=== PATIENT | male | born 1985 | race Caucasian/White ===

== ENCOUNTER 2017-07-02 14:57 | Emergency (ER) | payer SELFPAY ==
[~2017-07-02] VITALS: Ht 177.8 cm; Wt 77.1 kg
[~2017-07-02 14:57] MED LIST: AMOX500 PO; Amoxicillin500 MG PO; Bactrim Ds Tab1 EACH PO; CEPH500 PO; CODACE30 PO; CYCL10 PO; Cleocin HCl150 MG PO; DOXY100T53 PO; Flonase 0.05% N16 GM; HYDACE5 PO; HYDACE7.5 PO; IBUP800 PO; Keflex500 MG PO; LORA1 PO; NAPR500 PO; Naprosyn500 MG PO; Norco 10-325 T1 EACH PO; Norco 5-325 Ta1 EACH PO; PARO20 PO; PENVK500 PO; PROM25 PO; Peridex480 ML SS; Pseudoephedrine30 MG PO; Ultram50 MG PO; Veetids 500500 MG PO
[2017-07-02] MEDS ORDERED: Norco 5-325 Ta1 EACH PO (16:19)
[2017-07-02] MEDS ORDERED: Amoxicillin875 MG PO (16:19)
== END 2017-07-02 16:24 | disposition home or self-care (01) ==
LOC: ER 14:57
DX: K04.7 Periapical abscess without sinus (principal); F17.210 Nicotine dependence, cigarettes, uncomplicated
CPT/HCPCS: 41800; 99283

== ENCOUNTER 2017-07-03 12:02 | Emergency (ER) | payer SELFPAY ==
[~2017-07-03] VITALS: Ht 177.8 cm; Wt 74.8 kg
[~2017-07-03 12:02] MED LIST changes: +Amoxicillin875 MG PO
== END 2017-07-03 13:44 | disposition home or self-care (01) ==
LOC: ER 12:02
DX: K04.7 Periapical abscess without sinus (principal); Z79.2 Long term (current) use of antibiotics; F17.210 Nicotine dependence, cigarettes, uncomplicated
CPT/HCPCS: 36415; 96365; 99283

== ENCOUNTER 2018-01-06 11:50 | Emergency (ER) | payer OTHER, SELFPAY ==
[~2018-01-06] VITALS: Ht 170.2 cm; Wt 77.1 kg
== END 2018-01-06 13:18 | disposition home or self-care (01) ==
LOC: ER 11:50
DX: S20.211A Contusion of right front wall of thorax, initial encounter (principal); V00.131A Fall from skateboard, initial encounter; F17.210 Nicotine dependence, cigarettes, uncomplicated
CPT/HCPCS: 71100; 99283-25

== ENCOUNTER 2019-09-02 16:23 | Emergency (ER) | payer OTHER ==
[~2019-09-02] VITALS: Ht 177.8 cm; Wt 72.6 kg
== END 2019-09-02 16:45 | disposition left against medical advice (07) ==
LOC: ER 16:23
DX: Z00.00 Encounter for general adult medical examination without abnormal findings (principal); Z53.21 Procedure and treatment not carried out due to patient leaving prior to being seen by health care provider; F17.210 Nicotine dependence, cigarettes, uncomplicated
CPT/HCPCS: 99282

== ENCOUNTER 2020-01-17 20:40 | Emergency (ER) | payer OTHER | END 2020-01-17 21:42 | disposition left against medical advice (07) | LOC: ER 20:40 | DX: Z53.21 Procedure and treatment not carried out due to patient leaving prior to being seen by health care provider (principal) ==

== ENCOUNTER 2021-01-11 14:30 | Emergency (ER) | payer OTHER ==
[~2021-01-11] VITALS: Ht 180.3 cm; Wt 72.6 kg
[2021-01-11] MEDS ORDERED: IBUP800 PO (15:49)
[2021-01-11] MEDS ORDERED: HYDR1TAB94 PO (15:49)
== END 2021-01-11 15:57 | disposition home or self-care (01) ==
LOC: ER 14:30
DX: S52.502A Unspecified fracture of the lower end of left radius, initial encounter for closed fracture (principal); S52.612A Displaced fracture of left ulna styloid process, initial encounter for closed fracture; S46.912A Strain of unspecified muscle, fascia and tendon at shoulder and upper arm level, left arm, initial encounter; S80.212A Abrasion, left knee, initial encounter; F17.210 Nicotine dependence, cigarettes, uncomplicated; Z23 Encounter for immunization; V00.131A Fall from skateboard, initial encounter; Y93.51 Activity, roller skating (inline) and skateboarding
CPT/HCPCS: 25605; 73100; 73110; 90471; 90714; 96372-59; 99283-25; A9270; J1170; J1885

== ENCOUNTER 2021-01-12 16:04 | Emergency (ER) | payer OTHER ==
[~2021-01-12] VITALS: Ht 180.3 cm; Wt 77.1 kg
[~2021-01-12 16:04] MED LIST changes: +HYDR1TAB94 PO
== END 2021-01-12 16:31 | disposition home or self-care (01) ==
LOC: ER 16:04
DX: M25.532 Pain in left wrist (principal); S62.102D Fracture of unspecified carpal bone, left wrist, subsequent encounter for fracture with routine healing; F17.210 Nicotine dependence, cigarettes, uncomplicated; X58.XXXD Exposure to other specified factors, subsequent encounter
CPT/HCPCS: 99282

== ENCOUNTER 2021-02-19 03:43 | Emergency (ER) | payer OTHER ==
[~2021-02-19] VITALS: Ht 170.2 cm; Wt 68.0 kg
== END 2021-02-19 04:59 | disposition home or self-care (01) ==
LOC: ER 03:43
DX: S52.572A Other intraarticular fracture of lower end of left radius, initial encounter for closed fracture (principal); S52.612A Displaced fracture of left ulna styloid process, initial encounter for closed fracture; F17.210 Nicotine dependence, cigarettes, uncomplicated; V00.131A Fall from skateboard, initial encounter
CPT/HCPCS: 29125; 73110; 99283-25

== ENCOUNTER 2021-04-04 23:43 | Emergency (ER) | payer OTHER ==
[~2021-04-04] VITALS: Ht 160 cm; Wt 63.5 kg
== END 2021-04-05 01:16 | disposition left against medical advice (07) ==
LOC: ER 23:43
DX: Z53.21 Procedure and treatment not carried out due to patient leaving prior to being seen by health care provider (principal)

== ENCOUNTER 2021-04-27 11:48 | Emergency (ER) | payer OTHER ==
[~2021-04-27] VITALS: Ht 170.2 cm; Wt 68.0 kg
[2021-04-27] MEDS ORDERED: Amoxicillin500 MG PO (12:49)
[2021-04-27] MEDS ORDERED: IBU800 MG PO (12:49)
== END 2021-04-27 13:17 | disposition home or self-care (01) ==
LOC: ER 11:48
DX: K04.7 Periapical abscess without sinus (principal); F17.210 Nicotine dependence, cigarettes, uncomplicated
CPT/HCPCS: 99282

== ENCOUNTER 2021-06-08 11:14 | Emergency (ER) | payer OTHER ==
[~2021-06-08] VITALS: Ht 160 cm; Wt 72.6 kg
[~2021-06-08 11:14] MED LIST changes: +IBU800 MG PO
[2021-06-08] MEDS ORDERED: IBUP800 PO (12:34)
== END 2021-06-08 12:39 | disposition home or self-care (01) ==
LOC: ER 11:14
DX: M54.42 Lumbago with sciatica, left side (principal); F17.210 Nicotine dependence, cigarettes, uncomplicated; Z88.0 Allergy status to penicillin
CPT/HCPCS: 72100; 99283-25

== ENCOUNTER 2021-07-30 14:38 | Emergency (ER) | payer OTHER ==
[~2021-07-30] VITALS: Ht 170.2 cm; Wt 72.6 kg
[2021-07-30 17:15] LABS: Calcium, Ionized (POC) 1.22 mmol/L (1.10-1.46); Chloride (POC) 105 mmol/L (98-108); Creatinine (POC) 0.6 mg/dL (0.8-1.3); Glucose (ISTAT POC) 123 mg/dL (70-99); Hemoglobin (POC) 15.3 g/dL (13.5-17.5); Potassium (POC) 3.8 mmol/L (3.5-5.5); Sodium (POC) 140 mmol/L (135-148); Total CO2 (POC) 22 mmol/L (21-32)
[2021-07-30 18:34] LABS: Source, Urine Clean Catch
[2021-07-30 18:47] LABS: Appearance, Urine Clear (Clear); Bilirubin, Urine Neg (Neg); Blood, Urine Neg (Neg); Color, Urine Yellow (P-Yellow); Glucose Qualitative, Urine Neg (Neg); Ketones, Urine Neg (Neg); Leukocyte Esterase, Urine 1+ (Neg); Nitrite, Urine Neg (Neg); Protein, Urine 2+ (Neg); Urobilinogen, Urine NORM (Normal)
[2021-07-30 19:07] LABS: Red Blood Cells, Urine 0-2 /hpf (0-2)
[2021-07-30 19:08] LABS: Bacteria Few /hpf; Mucus Light (0-Heavy); Squamous Epithelial Cells Rare /hpf (Few)
== END 2021-07-30 21:08 | disposition home or self-care (01) ==
LOC: ER 14:38
PROVIDERS: Physician Assistant
DX: R10.9 Unspecified abdominal pain (principal); F19.10 Other psychoactive substance abuse, uncomplicated; R11.2 Nausea with vomiting, unspecified; R19.7 Diarrhea, unspecified; F17.200 Nicotine dependence, unspecified, uncomplicated; Z88.0 Allergy status to penicillin
CPT/HCPCS: 80047; 81001; 85014; 87086; 99284

== ENCOUNTER 2021-12-16 17:04 | Inpatient (IN) | payer OTHER ==
[~2021-12-16] VITALS: Ht 170.2 cm; Wt 71.0 kg
[2021-12-16 17:44] LABS: BASOPHILS ABSOLUTE AUTO 0.03 K/mm3 (0.00-0.23); BASOPHILS PERCENT AUTO 0 % (0-2); EOSINOPHILS ABSOLUTE AUTO 0.01 K/mm3 (0.00-0.68); EOSINOPHILS PERCENT AUTO 0 % (0-6); Hematocrit 36.4 % (37.0-53.0); Hemoglobin 12.6 g/dL (13.5-17.5); IMMATURE GRAN ABSOLUTE AUTO 0.04 K/mm3 (0.00-0.10); IMMATURE GRAN PERCENT AUTO 0 % (0-1); LYMPHOCYTES ABSOLUTE AUTO 0.34 K/mm3 (0.84-5.20); LYMPHOCYTES PERCENT AUTO 2 % (21-46); MONOCYTES ABSOLUTE AUTO 0.26 K/mm3 (0.16-1.47); MONOCYTES PERCENT AUTO 2 % (4-13); Mean Corpuscular HGB 31.2 pg (26.0-34.0); Mean Corpuscular HGB Conc 34.6 g/dL (31.5-36.5); Mean Corpuscular Volume 90 fL (80-100); Mean Platelet Volume 8.5 fL (9.1-12.4); NEUTROPHILS ABSOLUTE AUTO 14.24 K/mm3 (1.96-9.15); NEUTROPHILS PERCENT AUTO 95 % (41-73); Platelet Count 256 K/mm3 (150-400); RDW Coefficient Variation 13.2 % (11.7-14.2); Red Blood Cell Count 4.04 M/mm3 (4.30-5.90); White Blood Cell Count 14.92 K/mm3 (4.00-11.30)
[2021-12-16 18:02] LABS: Albumin, Blood 3.1 g/dL (3.4-5.0); Albumin/Globulin Ratio 0.8 (0.8-1.8); Bilirubin, Total 0.5 mg/dL (0.1-1.0); Bun/Creatinine Ratio 18.6 (12.0-20.0); Creatinine, Blood 0.86 mg/dL (0.60-1.20); Globulin, Blood 3.9 g/dL (2.2-4.0); Magnesium, Blood 1.9 mg/dL (1.6-2.4)
[2021-12-16 23:59] LABS: Influenza A, PCR NEGATIVE (NEGATIVE); Influenza B, PCR NEGATIVE (NEGATIVE); Resp Syncytial Virus, PCR NEGATIVE (NEGATIVE); SARS-Cov-2 (COVID-19) PCR, MMC NEGATIVE (NEGATIVE)
--- NOTE | 2021-12-17 02:24 | NUR ---
ADMIT NOTE HANDOFF RECEIVED FROM COLLAR BASTERJANA FOX. PT ARRIVED TO FLOOR VIA GURNEY. PERSONAL POSSESSIONS WITH PT. PT ORIENTED TO UNIT. IV ANTIB RX INFUSING. CALL BUTTON WITHIN REACH.
--- NOTE | 2021-12-17 04:39 | NUR ---
SHIFT SUMMARY ADMITTED FOR SEPSIS. FULL CODE. TELE: TACHY @ 110 BPM. IV ANTI B RX ARE SCHEDULED. BLOOD CULTURES DRAWN. HEAD CT: WNL. ELEVATED WBC LABS. TYLENOL GIVEN THIS SHIFT FOR HEADACHE. HE IS A&O X4, REGULAR DIET. STANDBY ASSIST DUE TO TUBES AND CORDS, WEAKNESS. COVID NEGATIVE IN ER
[2021-12-17 09:54] LABS: Hematocrit 32.9 % (37.0-53.0); Hemoglobin 11.2 g/dL (13.5-17.5); Mean Corpuscular HGB 31.1 pg (26.0-34.0); Mean Corpuscular Volume 91 fL (80-100); Platelet Count 181 K/mm3 (150-400); RDW Standard Deviation 43.4 fL (35.1-46.3); White Blood Cell Count 9.58 K/mm3 (4.00-11.30)
[2021-12-17 10:23] LABS: BAND PERCENT MAN 30 % (0-8); BASOPHILS PERCENT MAN 0 % (0-2); EOSINOPHILS PERCENT MAN 0 % (0-6); LYMPHOCYTES ABSOLUTE MAN 0.28 K/mm3 (0.84-5.20); LYMPHOCYTES PERCENT MAN 3 % (21-46); MONOCYTES PERCENT MAN 0 % (4-13); NEUTROPHILS ABSOLUTE MAN 9.29 K/mm3 (1.96-9.15); SEG NEUTROPHILS PERCENT MAN 67 % (41-73); TOTAL CELLS COUNTED 100
[2021-12-17 10:27] LABS: Bun/Creatinine Ratio 22.8 (12.0-20.0); Calcium, Blood 8.5 mg/dL (8.5-10.1); Creatinine, Blood 0.92 mg/dL (0.60-1.20); Potassium, Blood 3.4 mmol/L (3.5-5.5)
--- NOTE | 2021-12-17 20:12 | NUR ---
SUMM- PT SLEPT MOST OF THE DAY. HAD SEVERE WITHDRAWL S/S THIS AM OF SWEATING, FEELS HOT. ACHY ALL OVER. HEADACHE. STARTED SUBOXONE. S/S GREATLY IMPROVED T/O SHIFT WITH 2 2MG DOSES. PT HAS IVF INFUSING AND TOLERATING FOOD AND FLUIDS. VOIDING WITHOUD DIFFICULT. SBA TO BATHROOM, STEADY ON FEET, A LITTLE CLUMSY. TELE ST. GIRLFRIEND IN ROOM PART OF THE SHIRT. REPORT TO INDIA DOWNING RN.
[2021-12-18 01:44] LABS: Alanine Aminotransfer (ALT/SGP 70 U/L (12-78); Albumin, Blood 2.2 g/dL (3.4-5.0); Albumin/Globulin Ratio 0.6 (0.8-1.8); Alk Phos 235 U/L (50-136); Anion Gap 9 mmol/L (6-16); Aspartate Aminotrans (AST/SGOT 82 U/L (12-37); Bilirubin, Total 0.5 mg/dL (0.1-1.0); Blood Urea Nitrogen 19 mg/dL (8-24); Bun/Creatinine Ratio 24.5 (12.0-20.0); CO2, Blood 24 mmol/L (21-32); Calcium, Blood 8.2 mg/dL (8.5-10.1); Chloride, Blood 106 mmol/L (98-108); Creatinine, Blood 0.77 mg/dL (0.60-1.20); Globulin, Blood 3.4 g/dL (2.2-4.0); Glomerular Filtration Rate 119 (60-); Glucose, Blood 123 mg/dL (70-99); Potassium, Blood 3.7 mmol/L (3.5-5.5); Sodium, Blood 139 mmol/L (136-145); Total Protein, Blood 5.6 g/dL (6.4-8.2); Vancomycin, Trough 9.1 ug/mL (5.0-10.0)
--- NOTE | 2021-12-18 06:27 | NUR ---
SHIFT SUMMARY PATIENT ALERT AND ORIENTED. HAD NO COMPLAINTS OF PAIN OR SHORTNESS OF BREATH. NO ACUTE ISSUES NOTED OVERNIGHT. CALL LIGHT WITHIN REACH. REPORT GIVEN TO ONCOMING RN.
--- NOTE | 2021-12-18 11:12 | NUR ---
AT 1109 PT WAS GROWING INCREASINGLY AGGITATED R/T IV PUMP BEEPING. WHEN NURSE ENTERED ROOM PT STATED THAT HE WAS GOING TO "RIP THIS THING OUT OF HIS ARM, GO OUTSIDE TO SMOKE AND PROBABLY NOT COME BACK." THIS NURSE UNTILIZED THERAPEUTIC COMMUNICATION AND ACTIVE LISTENING. IV PUMP STOPPED, THIS NURSE CALLED DR SHAH AND ASKED FOR NICOTINE PATCH FOR PATIENT WHO CALMED SLIGHTLY AND EXPRESSED APPRECIATION TO NURSE FOR OFFERING. WILL BRING IN PATCH SOON VERIFIED BY PHARMACY. DR SHAH NOTIFIED THAT PT EXPRESSED DESIRE TO LEAVE AMA. IV DC'D PER PATIENT REQUEST.
--- NOTE | 2021-12-18 14:11 | NUR ---
AT 1137 PATIENT LEFT ROOM. CARDING MACHINE OPERATORJUAQUIN, ASKED PATIENT IF HE NEEDED SOMETHING AND HE SAID "YES" AND KEPT WALKING DOWN THE HALLWAY TO THE ELEVATOR. AT 1239 THIS NURSE CALLED TELEMETRY TO NOTIFY THEM THAT PT SELF REMOVED TELE AND HE WAS OUT OF THE ROOM. 1242 CHARGE NURSE NOTIFIED THAT PATIENT LEFT ROOM AND THAT EARLIER IN SHIFT HE STATED THAT HE "WAS GOING OUTSIDE TO SMOKE AND PROBABLY WONT COME BACK." CHARGE NURSE STATED THAT WE WOULD GIVE HIM AN HOUR BEFORE DISCHARGING HIM AMA. DR SHAH IN ROOM ROUNDING AT 1349 AND PATIENT WAS NOT PRESENT IN ROOM. THIS NURSE WILL PROCEED WITH DC AMA.
== END 2021-12-18 14:04 | disposition left against medical advice (07) | DRG 872 ==
LOC: ER 17:04 → MEDS 12-17 01:14
PROVIDERS: Emergency Medicine; Internal Medicine; Physician Assistant; ADMIT Internal Medicine
DX: A41.9 Sepsis, unspecified organism (principal); F15.13 Other stimulant abuse with withdrawal; F11.13 Opioid abuse with withdrawal; Z20.822 Contact with and (suspected) exposure to COVID-19; I95.9 Hypotension, unspecified; D64.9 Anemia, unspecified; R51.9 Headache, unspecified; F10.10 Alcohol abuse, uncomplicated; F17.210 Nicotine dependence, cigarettes, uncomplicated; Z79.899 Other long term (current) drug therapy; Z88.0 Allergy status to penicillin; Z59.00 Homelessness unspecified
CPT/HCPCS: 0241U; 36415; 70450; 71045; 76705; 80048; 80053; 80202; 83605; 83735; 85025; 87040; 96361; 96374; 96375; 99285-25; A9270; J0696; J1650; J1790; J1885; J2405; J3370; J7030; J7060

== ENCOUNTER 2021-12-24 15:37 | Emergency (ER) | payer OTHER ==
[~2021-12-24] VITALS: Ht 172.7 cm; Wt 68.0 kg
[2021-12-24 16:46] LABS: BASOPHILS ABSOLUTE AUTO 0.05 K/mm3 (0.00-0.23); BASOPHILS PERCENT AUTO 1 % (0-2); EOSINOPHILS ABSOLUTE AUTO 0.09 K/mm3 (0.00-0.68); EOSINOPHILS PERCENT AUTO 1 % (0-6); Hematocrit 36.3 % (37.0-53.0); Hemoglobin 12.1 g/dL (13.5-17.5); IMMATURE GRAN ABSOLUTE AUTO 0.05 K/mm3 (0.00-0.10); IMMATURE GRAN PERCENT AUTO 1 % (0-1); LYMPHOCYTES ABSOLUTE AUTO 3.09 K/mm3 (0.84-5.20); LYMPHOCYTES PERCENT AUTO 31 % (21-46); MONOCYTES ABSOLUTE AUTO 0.57 K/mm3 (0.16-1.47); MONOCYTES PERCENT AUTO 6 % (4-13); Mean Corpuscular HGB 30.8 pg (26.0-34.0); Mean Corpuscular HGB Conc 33.3 g/dL (31.5-36.5); Mean Corpuscular Volume 92 fL (80-100); Mean Platelet Volume 8.2 fL (9.1-12.4); NEUTROPHILS ABSOLUTE AUTO 6.13 K/mm3 (1.96-9.15); NEUTROPHILS PERCENT AUTO 61 % (41-73); Platelet Count 500 K/mm3 (150-400); RDW Coefficient Variation 13.9 % (11.7-14.2); Red Blood Cell Count 3.93 M/mm3 (4.30-5.90); White Blood Cell Count 9.98 K/mm3 (4.00-11.30)
[2021-12-24 17:12] LABS: Influenza A, PCR NEGATIVE (NEGATIVE); Influenza B, PCR NEGATIVE (NEGATIVE); Resp Syncytial Virus, PCR NEGATIVE (NEGATIVE); SARS-Cov-2 (COVID-19) PCR, MMC NEGATIVE (NEGATIVE)
[2021-12-24 17:29] LABS: Albumin, Blood 3.3 g/dL (3.4-5.0); Albumin/Globulin Ratio 0.9 (0.8-1.8); Bilirubin, Total 0.4 mg/dL (0.1-1.0); Bun/Creatinine Ratio 10.3 (12.0-20.0); Calcium, Blood 8.8 mg/dL (8.5-10.1); Creatinine, Blood 1.16 mg/dL (0.60-1.20); Globulin, Blood 3.7 g/dL (2.2-4.0); Potassium, Blood 4.1 mmol/L (3.5-5.5)
[2021-12-24 18:15] LABS: Source, Urine Clean Catch
[2021-12-24 18:18] LABS: Appearance, Urine Cloudy (Clear); Bilirubin, Urine Neg (Neg); Blood, Urine Neg (Neg); Color, Urine Yellow (P-Yellow); Glucose Qualitative, Urine Neg (Neg); Ketones, Urine Neg (Neg); Leukocyte Esterase, Urine Neg (Neg); Nitrite, Urine Neg (Neg); Protein, Urine Neg (Neg); Specific Gravity, Urine 1.015 (1.003-1.022); Urobilinogen, Urine 1+ (Normal)
[2021-12-24 18:23] LABS: Red Blood Cells, Urine 0-2 /hpf (0-2); White Blood Cells, Urine 0-2 /hpf (0-5)
[2021-12-24 18:25] LABS: Amorphous Heavy (0-Heavy); Bacteria Rare /hpf; Squamous Epithelial Cells Rare /hpf (Few)
== END 2021-12-25 00:38 | disposition home or self-care (01) ==
LOC: ER 15:37
PROVIDERS: Physician Assistant; Student in an Organized Health Care Education/Training Program
DX: R65.10 Systemic inflammatory response syndrome (SIRS) of non-infectious origin without acute organ dysfunction (principal); D64.9 Anemia, unspecified; F15.10 Other stimulant abuse, uncomplicated; F11.10 Opioid abuse, uncomplicated; Z88.0 Allergy status to penicillin; F17.210 Nicotine dependence, cigarettes, uncomplicated; Z20.822 Contact with and (suspected) exposure to COVID-19; Z59.00 Homelessness unspecified
CPT/HCPCS: 0241U; 36415; 71046; 80053; 81001; 83605; 85025; 96365; 96366; 96367; 99283-25; A9270; J0692; J3370; J7030; J7050; J7060

== ENCOUNTER 2021-12-25 12:33 | Emergency (ER) | payer OTHER ==
[~2021-12-25] VITALS: Ht 172.7 cm; Wt 68.0 kg
[2021-12-25 21:24] LABS: Albumin, Blood 3.1 g/dL (3.4-5.0); Albumin/Globulin Ratio 0.8 (0.8-1.8); BASOPHILS ABSOLUTE AUTO 0.07 K/mm3 (0.00-0.23); BASOPHILS PERCENT AUTO 1 % (0-2); Bilirubin, Total 0.4 mg/dL (0.1-1.0); Bun/Creatinine Ratio 12.8 (12.0-20.0); Calcium, Blood 8.7 mg/dL (8.5-10.1); Creatinine, Blood 0.78 mg/dL (0.60-1.20); EOSINOPHILS ABSOLUTE AUTO 0.13 K/mm3 (0.00-0.68); EOSINOPHILS PERCENT AUTO 1 % (0-6); Globulin, Blood 3.7 g/dL (2.2-4.0); Hematocrit 35.9 % (37.0-53.0); IMMATURE GRAN ABSOLUTE AUTO 0.07 K/mm3 (0.00-0.10); IMMATURE GRAN PERCENT AUTO 1 % (0-1); LYMPHOCYTES ABSOLUTE AUTO 3.78 K/mm3 (0.84-5.20); LYMPHOCYTES PERCENT AUTO 31 % (21-46); MONOCYTES ABSOLUTE AUTO 0.85 K/mm3 (0.16-1.47); MONOCYTES PERCENT AUTO 7 % (4-13); Mean Corpuscular HGB 31.2 pg (26.0-34.0); Mean Corpuscular HGB Conc 33.4 g/dL (31.5-36.5); Mean Corpuscular Volume 93 fL (80-100); Mean Platelet Volume 8.4 fL (9.1-12.4); NEUTROPHILS ABSOLUTE AUTO 7.35 K/mm3 (1.96-9.15); NEUTROPHILS PERCENT AUTO 60 % (41-73); Platelet Count 530 K/mm3 (150-400); Potassium, Blood 3.9 mmol/L (3.5-5.5); RDW Standard Deviation 47.6 fL (35.1-46.3); Red Blood Cell Count 3.85 M/mm3 (4.30-5.90); Total Protein, Blood 6.8 g/dL (6.4-8.2); White Blood Cell Count 12.25 K/mm3 (4.00-11.30)
[2021-12-25 21:47] LABS: Source, Urine Clean Catch
[2021-12-25 21:52] LABS: Bilirubin, Urine Neg (Neg); Blood, Urine Neg (Neg); Glucose Qualitative, Urine Neg (Neg); Ketones, Urine Neg (Neg); Leukocyte Esterase, Urine Neg (Neg); Nitrite, Urine Neg (Neg); Protein, Urine Neg (Neg); Specific Gravity, Urine 1.015 (1.003-1.022); Urobilinogen, Urine 1+ (Normal); pH, Urine 6.5 (5.0-8.0)
[2021-12-25 22:07] LABS: Appearance, Urine Cloudy (Clear); Color, Urine Yellow (P-Yellow)
[2021-12-25 22:09] LABS: Amorphous Heavy (0-Heavy); Bacteria Not Seen /hpf; Red Blood Cells, Urine 0-2 /hpf (0-2); Squamous Epithelial Cells Not Seen /hpf (Few); White Blood Cells, Urine 0-2 /hpf (0-5)
== END 2021-12-25 23:11 | disposition home or self-care (01) ==
LOC: ER 12:33
PROVIDERS: Student in an Organized Health Care Education/Training Program
DX: J06.9 Acute upper respiratory infection, unspecified (principal); F17.210 Nicotine dependence, cigarettes, uncomplicated; Z88.0 Allergy status to penicillin
CPT/HCPCS: 36415; 80053; 81001; 85025; A9270; J7030

== ENCOUNTER 2021-12-25 23:52 | Emergency (ER) | payer OTHER ==
[~2021-12-25] VITALS: Ht 172.7 cm; Wt 68.0 kg
== END 2021-12-26 06:50 | disposition home or self-care (01) ==
LOC: ER 23:52
DX: R50.9 Fever, unspecified (principal); D72.829 Elevated white blood cell count, unspecified; F15.11 Other stimulant abuse, in remission; F11.11 Opioid abuse, in remission; F17.210 Nicotine dependence, cigarettes, uncomplicated; Z88.0 Allergy status to penicillin; Z59.00 Homelessness unspecified
CPT/HCPCS: 99281